=== PATIENT | female | born 1990 | race Caucasian/White ===

== ENCOUNTER 2022-10-18 13:03 | Emergency (ER) | payer OTHER ==
[~2022-10-18] VITALS: Ht 157.5 cm; Wt 52.6 kg
[2022-10-18 14:00] VITALS: BP 96/63
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
--- NOTE | 2022-10-18 14:17 | NUR ---
PT W/C ASSISTED TO BED 6
[2022-10-18] MEDS ORDERED: MORPHINE SULFATE 4 MG/ML SYR IVP ONE (15:00)
[2022-10-18] MEDS ORDERED: ONDANSETRON 4 MG/2 ML VIAL IVP ONE (15:00)
[2022-10-18 15:36] LABS: BASOPHILS % (AUTO) 0.9 % (0.0-2.0); EOSINOPHILS % (AUTO) 0.5 % (0.0-4.0); HEMATOCRIT 35.9 % (36-48); HEMOGLOBIN 12.2 g/dL (12.0-16.0); LYMPHOCYTES # (AUTO) 1.6 K/uL (2.5-16.5); LYMPHOCYTES % (AUTO) 28.5 % (20.5-51.1); MEAN CORPUSCULAR HEMOGLOBIN 30 pg (27-31); MEAN CORPUSCULAR HGB CONC 34 g/dL (33-37); MEAN CORPUSCULAR VOLUME 88.4 fL (80-94); MONOCYTES # (AUTO) 0.3 K/uL (0.8-1.0); MONOCYTES % (AUTO) 6.2 % (1.7-9.3); NEUTROPHILS # (AUTO) 3.5 K/uL (1.8-7.7); NEUTROPHILS % (AUTO) 63.9 % (42.2-75.2); PLATELET COUNT (AUTO) 355 K/uL (140-450); RED BLOOD CELL COUNT(AUTO) 4.06 MIL/uL (4.20-5.40); RED CELL DISTRIBUTION WIDTH 12.6 % (11.6-13.7); WHITE BLOOD COUNT (AUTO) 5.5 K/uL (4.8-10.8)
--- NOTE | 2022-10-18 15:46 | NUR ---
PT TAKEN TO CT
[2022-10-18 15:52] LABS: ALBUMIN 4.2 g/dL (3.4-5.0); ANION GAP 15.2 (8-16); CARBON DIOXIDE 21.2 mmol/L (21-32); CREATININE 0.7 mg/dL (0.6-1.3); POTASSIUM 3.4 mmol/L (3.5-5.1); TOTAL BILIRUBIN 0.5 mg/dL (0.0-1.0)
--- NOTE | 2022-10-18 17:31 | NUR ---
PT REQUESTED TO LEAVE AGAINST MEDICAL ADVICE, NOTIFIED AND AT BEDSIDE. PT AGREES TO RISKS.
[2022-10-18] MEDS ORDERED: ACET-10509 PO (17:37)
[2022-10-18] MEDS ORDERED: IBUP-2218 PO (17:37)
[2022-10-18] MEDS ORDERED: CYCL-711 PO (17:37)
--- NOTE | 2022-10-18 17:44 | NUR ---
Patient does not wish to proceed with medical care recommended by DR JORGENSEN. Patient given information related to possible complications, up to and including , which could occur as a result of leaving hospital at this time. Patient verbalizes understanding of risks involved leaving against medical advice. Patient has signed AMA form.
--- NOTE | 2022-10-18 17:44 | NUR ---
The patient's care was reviewed and supervised by [facility], RN.
[2022-10-18 17:57] VITALS: BP 103/61
== END 2022-10-18 17:57 | disposition left against medical advice (07) ==
LOC: MED 13:03
DX: R32 Unspecified urinary incontinence (principal); Z79.899 Other long term (current) drug therapy; V89.2XXA Person injured in unspecified motor-vehicle accident, traffic, initial encounter; Y93.89 Activity, other specified; Y92.89 Other specified places as the place of occurrence of the external cause; Y99.8 Other external cause status
CPT/HCPCS: 36415; 70450; 72127; 72133; 73030; 73080; 73502; 73562; 80053; 81025; 85025; 96374; 96375; 99285; J2270; J2405; Q9967